=== PATIENT | female | born 1950 | race Caucasian/White ===

== ENCOUNTER → 2020-10-24 | Outpatient (CLI) | payer MEDICARE | END | disposition home or self-care (01) | LOC: SHCH 08:11 | PROVIDERS: ATTEND Internal Medicine Cardiovascular Disease | DX: I35.0 Nonrheumatic aortic (valve) stenosis (principal) | CPT/HCPCS: 93306; 93356 ==

== ENCOUNTER → 2020-11-17 | Outpatient (CLI) | payer MEDICARE | END | disposition home or self-care (01) | LOC: RAH 15:26 | PROVIDERS: ATTEND Internal Medicine | DX: Z12.31 Encounter for screening mammogram for malignant neoplasm of breast (principal) | CPT/HCPCS: 77067 ==

== ENCOUNTER → 2020-12-08 | Outpatient (CLI) | payer MEDICARE | END | disposition home or self-care (01) | LOC: RAH 12:29 | PROVIDERS: ATTEND Internal Medicine | DX: N20.0 Calculus of kidney (principal) | CPT/HCPCS: 76705 ==

== ENCOUNTER → 2021-01-13 | Outpatient (CLI) | payer MEDICARE | END | disposition home or self-care (01) | LOC: RAH 11:26 | PROVIDERS: ATTEND Internal Medicine | DX: R07.81 Pleurodynia (principal) | CPT/HCPCS: 71046 ==

== ENCOUNTER 2021-08-01 06:08 | Emergency (ER) | payer MEDICARE ==
[~2021-08-01] VITALS: Ht 162.6 cm; Wt 51.7 kg
[2021-08-01 06:42] LABS: BASOPHILS % (AUTO) 0.6 % (0.0-5.0); HEMATOCRIT 35.4 % (36-48); LYMPHOCYTES % (AUTO) 15.5 % (21.0-51.0); MEAN CORPUSCULAR HEMOGLOBIN 29.5 pg (27.0-33.0); MEAN CORPUSCULAR HGB CONC 33.3 g/dL (32.0-36.0); MEAN CORPUSCULAR VOLUME 88.5 fL (79-99); MONOCYTES % (AUTO) 6.9 % (3.0-13.0); NEUTROPHILS % (AUTO) 75.7 % (40.0-77.0); PLATELET COUNT (AUTO) 154 K/uL (130-400); WHITE BLOOD COUNT (AUTO) 6.9 K/uL (4.8-10.8)
[2021-08-01 06:56] LABS: ALBUMIN 3.8 g/dL (3.5-5.0); BILIRUBIN,TOTAL 0.8 mg/dL (0.2-1.0); CREATININE 0.7 mg/dL (0.5-1.5); MAGNESIUM 2.1 mg/dL (1.80-2.40); POTASSIUM 3.4 mmol/L (3.5-5.1); TOTAL PROTEIN, SERUM 6.8 g/dL (6.0-8.3)
[2021-08-01 07:21] LABS: B-TYPE NATRIURETIC PEPTIDE 27 pg/mL (0-100)
[2021-08-01 07:25] VITALS: BP 135/64
[2021-08-01 07:44] LABS: APPEARANCE,URINE Clear (CLEAR); BILIRUBIN,URINE Negative (NEGATIVE); COLOR,URINE Yellow (YELLOW); GLUCOSE, URINE (UA) Negative (NEGATIVE); KETONES,URINE Trace mg/dL (NEGATIVE); LEUKOCYTE ESTERASE ,URINE Large (NEGATIVE); NITRATE,URINE Negative (NEGATIVE); OCCULT BLOOD,URINE Negative (NEGATIVE); PROTEIN,URINE Negative (NEGATIVE)
[2021-08-01 07:59] LABS: BACTERIA,URINE Few /HPF (None Seen); RBC,URINE 0-1 /HPF (0-1); WBC,URINE 51-100 /HPF (0-1)
[2021-08-01] MEDS ORDERED: 0.9% NACL 500ML IV.SOLN 500 ML IV ONE (08:00)
[2021-08-01] MEDS ORDERED: CEFTRIAXONE 1G VIAL IVP ONE (08:00)
[2021-08-01] MEDS ORDERED: KETOROLAC 15MG/ML VIAL (15MG/ML) IV ONE (08:00)
[2021-08-01] MEDS ORDERED: TRAM50TA4 PO (08:34)
[2021-08-01] MEDS ORDERED: CEPH500B PO (08:34)
== END 2021-08-01 09:00 | disposition home or self-care (01) ==
LOC: EDH 06:08
DX: N39.0 Urinary tract infection, site not specified (principal); E86.0 Dehydration; R68.84 Jaw pain; R55 Syncope and collapse; Z20.822 Contact with and (suspected) exposure to COVID-19; E03.9 Hypothyroidism, unspecified; E78.00 Pure hypercholesterolemia, unspecified; I10 Essential (primary) hypertension; Z88.1 Allergy status to other antibiotic agents; Z79.1 Long term (current) use of non-steroidal anti-inflammatories (NSAID)
CPT/HCPCS: 36415; 70450; 71045; 80053; 81001; 82550; 83735; 83880; 84484; 85025; 85378; 87077; 87088; 87186; 87635; 93005; 96374; 96375; 99285; C9803; J0696; J1885

== ENCOUNTER → 2024-06-24 | Outpatient (CLI) | payer MEDICARE ==
[~2024-06-24] MED LIST: CEPH500B PO; TRAM50TA4 PO
--- NOTE | 2024-06-24 15:46 | HMCIMG ---
HIP BILAT 2VW HISTORY: Repeated falls COMPARISON: None TECHNIQUE: 5 images of bilateral hips and pelvis were obtained. FINDINGS: There is no acute displaced fracture or dislocation. Bilateral hip joint space narrowing is seen. Degenerative changes are seen. IMPRESSION: 1. Findings as described above.
== END | disposition home or self-care (01) ==
LOC: RAH 13:38
PROVIDERS: ATTEND Internal Medicine Nephrology
DX: M16.0 Bilateral primary osteoarthritis of hip (principal); R29.6 Repeated falls; M54.9 Dorsalgia, unspecified; M54.2 Cervicalgia
CPT/HCPCS: 73521

== ENCOUNTER → 2024-06-30 | Outpatient (CLI) | payer MEDICARE ==
--- NOTE | 2024-06-30 14:51 | HMCIMG ---
Exam Type: CT cervical spine without contrast Clinical Information: Dorsalgia, unspecified Comparison: None Technique: Spiral axial images were performed from the base of the skull down to the thoracic vertebral bodies. Both sagittal and coronal reconstructions were performed. CT Dose Index (CTDI): 12.85 mGy Dose Length Product (DLP): 282.6 total Findings: There are degenerative changes. Degenerative disc disease is noted at multiple levels. There is reversal of normal cervical lordosis consistent with degeneration and spasm. There are no fractures. There is facet hypertrophy at multiple levels. IMPRESSION: Degenerative changes as noted. No acute pathology. No fractures seen. This study was performed using dose reduction techniques to include automated exposure control and/or adjustment of the mA and/or kV according to patient size.
--- NOTE | 2024-06-30 14:51 | HMCIMG ---
Exam Type: CT THORACIC SPINE W/O CONTRAST Clinical Information: Dorsalgia, unspecified Comparison: None Technique: Spiral axial images were performed from base of skull to the L1 level. Both sagittal and coronal reconstructions were performed. CT Dose Index (CTDI): 87.85 mGy Dose Length Product (DLP): 2176.7 total Findings: Osteopenia and spondylitic changes. Chronic compression fracture, mild, upper endplate T11 without retropulsion. No other fractures. Spondylitic changes. No large protrusions or extrusions. IMPRESSION: Chronic compression fracture, mild, upper endplate T11. Spondylitic changes.
--- NOTE | 2024-06-30 14:56 | HMCIMG ---
Exam Type: CT LUMBAR SPINE W/O CONTRAST Clinical Information: Dorsalgia, unspecified Comparison: None Findings: Status post disc fusion at L4-5 as well as posterior fusion with residual grade 1 anterolisthesis of L4 over L5. Degenerative disc disease L5-S1 without anterolisthesis. Osteopenia. No acute fractures or dislocations. IMPRESSION: Postoperative and degenerative changes as noted.
== END | disposition home or self-care (01) ==
LOC: RAH 13:32
PROVIDERS: ATTEND Internal Medicine Nephrology
DX: M47.816 Spondylosis without myelopathy or radiculopathy, lumbar region (principal); M47.812 Spondylosis without myelopathy or radiculopathy, cervical region; M85.88 Other specified disorders of bone density and structure, other site; M48.54XA Collapsed vertebra, not elsewhere classified, thoracic region, initial encounter for fracture; M43.16 Spondylolisthesis, lumbar region; M50.30 Other cervical disc degeneration, unspecified cervical region; M54.9 Dorsalgia, unspecified
CPT/HCPCS: 72125; 72128; 72131